=== PATIENT | female | born 1930 | race Caucasian/White ===

== ENCOUNTER → 2017-10-19 | Outpatient (CLI) | payer MEDICARE, BC ==
[~2017-10-19] MED LIST: ASPIRIN81 M2 PO; AUGMENTIN 500-1 EACH PO; CARDIZEM CD240 MG PO; COLACE100 MG PO; CRANBERRY250 MG PO; ERYTHROMYCIN E3.5 G2 OTIC; FISH OIL 1,001000 M1 PO; HYDROCORTISONE30 G9 RECTAL; KEFLEX500 MG PO; MAG-AL PLUS SUS30 ML PO; MELATONIN5 M1 PO; MINOCIN100 MG PO; NAMENDA 5 MG TAB5 M1 PO; OXYCODONE HCL 55 MG PO; PHENERGAN 25 MG25 M1 PO; SYNTHROID100 MCG PO; TESSALON PERLE100 MG PO; TRAMADOL 50 MG50 MG PO; TYLENOL325 MG PO; VITAMIN D1000 UNI1 PO; VITAMINC500 PO; ZYRTEC10 MG PO
--- NOTE | 2017-10-19 10:56 | 2DMMODE ---
[place] [address] 2 D/M-MODE ECHOCARDIOGRAM Name: AMEENA SHINE Room: [facility]#: [id number] Admission: 10/19/17 Attend Phys: Carol Marsh, Discharge: Date of : [birth year] Date of Service: 10/19/17 1056 Report #: [id number] THIS REPORT FOR: //name// APPROVED REPORT Study performed: 10/19/2017 09:58:06 EXAM: Comprehensive 2D, Doppler, and color-flow Echocardiogram Patient Location: Out-Patient Status: routine BSA: 1.78 HR: 82 bpm BP: 131/76 mmHg Other Information Study Quality: Good Indications Aortic Valve Disease Atrial Fibrillation 2D Dimensions LVEF(%): 66.73 (>50%) IVSd: 8.22 (7-11mm) LVOT Diam: 20.77 (18-24mm) LVDd: 44.19 mm PWd: 7.88 (7-11mm) Ascending Ao: 34.21 (22-36mm) LVDs: 27.97 (25-40mm) Aortic Root: 28.77 mm Davenport's LVEF: 66.73 % Volumes Left Atrial Volume (Systole) LA ESV Index: 41.00 mL/m2 Aortic Valve AoV Peak Dhiraj.: 3.16 m/s AO Peak Gr.: 39.83 mmHg LVOT Max P.58 mmHg AO Mean Gr.: 24.67 mmHg LVOT Mean P.29 mmHg LVOT Max V: 0.80 m/s AO V2 VTI: 68.43 cm LVOT Mean V: 0.52 m/s JEOVANNY (VTI): 0.89 cm2 LVOT V1 VTI: 17.98 cm Mitral Valve MV Peak Gr.: 8.04 [place] [address] 2 D/M-MODE ECHOCARDIOGRAM Name: AMEENA SHINE Room: [facility]#: [id number] Admission: 10/19/17 Attend Phys: Carol Marsh, Discharge: Date of : [birth year] Date of Service: 10/19/17 1056 Report #: [id number] MV Mean Gr.: 3.35 mmHg MV Decel. Time: 244.49 ms MV E Max Dhiraj.: 1.20 m/s MV PHT: 70.90 ms MVA (PHT): 3.10 cm2 TDI E/Lateral E': 13.33 E/Medial E': 17.14 Medial E' Dhiraj.: 0.07 m/s Lateral E' Dhiraj.: 0.09 m/s Pulmonary Valve PV Peak Dhiraj.: 0.71 m/s PV Peak Gr.: 2.03 mmHg Tricuspid Valve TR Peak Gr.: 24.14 mmHg RVSP: 29.14 mmHg Left Ventricle The left ventricle is normal size. There is normal LV segmental wall motion. There is normal left ventricular wall thickness. Left ventricular systolic function is normal. The left ventricular ejection fraction is within the normal range. LVEF is 55-60%. The left ventricular diastolic function is normal. Right Ventricle The right ventricle is normal size. The right ventricular systolic function is normal. Atria Left atrium is moderately dilated. Right atrium is moderately dilated. Aortic Valve Moderate aortic valve sclerosis. No aortic regurgitation is present. Moderate stenosis. Mitral Valve There is mild mitral annular calcification. Mild mitral regurgitation. No evidence of mitral valve stenosis. Tricuspid Valve The tricuspid valve is normal in structure. Mild tricuspid regurgitation. The RVSP is 40_ mmHg. Pulmonic Valve The pulmonary valve is normal in structure[place] [address] 2 D/M-MODE ECHOCARDIOGRAM Name: AMEENA SHINE Room: [facility]#: [id number] Admission: 10/19/17 Attend Phys: Carol Marsh, Discharge: Date of : [birth year] Date of Service: 10/19/17 1056 Report #: [id number] regurgitation. Great Vessels The aortic root is normal in size. IVC is normal in size and collapses with >50% inspiration Pericardium There is no pericardial effusion. <Conclusion> LVEF is 55-60%. Left atrium is moderately dilated. Right atrium is moderately dilated. Moderate stenosis. Mild mitral regurgitation. Mild tricuspid regurgitation. The RVSP is 40_ mmHg. <ELECTRONICALLY SIGNED> By: Bean Alcaraz MD, FACC 10/19/17 1056 1056 1056 Bean Alcaraz MD, FACC /INF
== END ==
LOC: M.CRD 09:28
DX: I08.1 Rheumatic disorders of both mitral and tricuspid valves (principal); I48.2 Chronic atrial fibrillation